=== PATIENT | female | born 1970 | race Caucasian/White ===

== ENCOUNTER → 2023-11-23 11:09 | Outpatient (REF) | payer OTHER, SELFPAY | LOC: WDC 11:09 | PROVIDERS: ATTENDING PHYSICIAN Physician Assistant Medical | DX: Z12.31 Encounter for screening mammogram for malignant neoplasm of breast (principal) | CPT/HCPCS: 77063; 77067 ==

== ENCOUNTER 2024-06-01 20:01 | Inpatient (IN) | payer OTHER, SELFPAY ==
[2024-06-01] VITALS (8 sets, daily range): BP systolic 109–145; BP diastolic 61–99; BMI 37.5
[2024-06-01 12:08] LABS: % Basophils 0.2 % (0-2); % Eosinophils 0.2 % (0-6); % Immature Granulocytes 0.5 % (0-0.5); % Lymphocytes 5.1 % (20.5-51.1); % Monocytes 5.5 % (1.7-9.3); % Neutrophils 88.5 % (42.2-75.2); Absolute Immature Granulocytes 0.1 10^3/uL (0-0.05); Absolute Lymphocytes 0.9 10^3/uL (1.2-3.4); Absolute Monocytes 0.9 10^3/uL (0.1-0.6); Absolute Neutrophils 14.8 10^3/uL (1.4-6.5); Hematocrit 36.1 % (37.0-47.0); Hemoglobin 12.4 g/dL (12.0-16.0); Mean Corp Hgb Conc. 34.3 g/dL (33.0-37.0); Mean Corpuscular Hgb 33.4 pg (27.0-31.0); Mean Corpuscular Volume 97.3 fL (81.0-99.0); Mean Platelet Volume 9.3 fL (7.4-10.4); Nucleated Red Blood Cells % 0 %; Platelet Count 306 10^3/uL (130-400); Red Blood Cell Count 3.71 10^6/uL (4.20-5.40); Red Cell Dist. Width 13.2 % (11.5-14.5); White Blood Cell Count 16.7 10^3/uL (4.8-10.8)
[2024-06-01 12:17] LABS: HCG, Serum Qualitative Screen Negative
[2024-06-01 12:34] LABS: ALT (SGPT) 21 U/L (0-35); AST (SGOT) 23 U/L (14-36); Albumin 4.3 g/dl (3.5-5.0); Alkaline Phosphatase 54 U/L (38-126); Blood Urea Nitrogen 8 mg/dl (7-17); Calcium 9.8 mg/dl (8.4-10.2); Carbon Dioxide 26 mmol/L (22-30); Chloride 97 mmol/L (98-107); Glucose 139 mg/dl (70-99); Lipase 52 U/L (23-300); Potassium 3.7 mmol/L (3.5-5.1); Sodium 133 mmol/L (135-145); Total Protein 7.5 g/dl (6.3-8.2); eGFR > 60.00
[2024-06-01] MEDS: DILAUDID 0.5 MG IV ×2 (13:57→16:03)
--- NOTE | 2024-06-01 14:09 | ED.GENMED ---
History of Present Illness
General
Chief Complaint: Abdominal Pain
Source: patient
Exam Limitations: none
Time Seen by Provider: 06/01/24 13:37
Nursing documentation reviewed up to this point in time: agreed with
History of Present Illness
History of Present Illness:
Patient presents to ED secondary to worsening lower abdominal pain over the past 3 days. Abdominal pain described as sharp, nonradiating, without any alleviating or exacerbating factors. Denies fever or chills. Denies trauma. Denies back pain.
Denies difficulty with urination. Denies previous history of similar symptoms. Of note, patient was treated with antibiotics and steroids 3 weeks ago secondary to bronchitis.
Past History
Past History
ED Past Medical History: Valvular disease (Heart murmur as a child) and Psychiatric (Anxiety)
ED Past Surgical History: Other (Repair of a fractured ankle)
Social History
Tobacco: Smoker
Alcohol: None
Drug: None
Personal:
Living: with family
Employment: Employed
Review of Systems
Review of Systems
Allergies reviewed?: Yes
All Other Systems: ROS reviewed and negative except as documented in HPI and ROS
Constitutional: Reports no symptoms; Denies fever or chills
ABD/GI: Reports abdominal pain, nausea and vomiting; Denies diarrhea
: Reports no symptoms
Musculoskeletal: Reports no symptoms
Skin: Reports no symptoms
Neurological: Reports no symptoms
Phy Exam
Physical Exam
Physical Exam:
Physical Exam
General: mild distress, not acutely ill. afebrile.
Head: nc/at. eomi
Neck: supple. no meningeal signs.
Heart: s1/s2 regular rate and rhythm, no murmur. equal radial pulses.
Lungs: no acute respiratory distress. clear bilaterally
Abdomen: normal bowel sounds. not tender.
Neuro: alert and oriented. no focal neurological deficits
Skin: no rash
Psychiatric: well kept. interactive and cooperative
Extremities: no edema. no calf tenderness.
Course
Orders/Labs/Results
Orders:
Orders
06/01/24 11:53
Test Result ONCE
06/01/24 11:56
Complete Blood Count/With Diff Urgent
Comprehensive Metabolic Panel Urgent
HCG, Serum Qualitative Screen Urgent
Lipase Urgent
06/01/24 13:46
CT Abd/pelvis W Iv Cont Urgent
Comment:
Reason For Exam: RLQ pain
HYDROmorphone [Dilaudid] 0.5 mg IV NOW STA
06/01/24 Dinner
Clear Liquid
At Your Request: Full Participation
06/01/24 15:54
Piperacillin/Tazo 3.375 Gram [Zosyn] 3.375 gram in 50 ml IV NOW
06/01/24 15:55
HYDROmorphone [Dilaudid] 0.5 mg IV NOW STA
06/01/24 16:35
Admit Patient As Directed
Co-Sign Provider:
Level of Care: Observation services
Assign to:: Medical/Surgical
Physician / Group: General surgery/[facility]
Diagnosis: acute appendicitis
Code Status As Directed
Resuscitation Status: Full Code
Acetaminophen [Tylenol] 650 mg PO Q4HPRN PRN
HYDROmorphone [Dilaudid] 0.5 mg IV Q4HPRN PRN
Ketorolac [Toradol] 10 mg IV Q6HPRN PRN
Activity As Directed
Activity Level: Out of Bed-Early Mobility
Anti-embolism (MICHAEL) Hose As Directed
Type: Thigh high
Intake/ Output As Directed
Frequency: Per unit guidelines
Vital Signs As Directed
Frequency: Per unit guidelines
06/01/24 16:36
Pneumatic Compression Sleeves As Directed
Type: Knee high
PRN Pain Medication Management As Directed
May give lesser potent ordered pain med per pt: Yes
preference::
Protocol:: Medication orders for pain may be administered in a
manner that supports deferring to patient preference
when the pt is:
- Requesting an ordered lesser potent pain medication.
Least to most potent pain medications are defined
as: acetaminophen < NSAID < tramadol < opioids
(morphine, oxycodone, hydromorphone).
- Requesting a lesser dose of the same medication IF
ORDERED.
- Requesting a less intrusive route of administration
if both routes are prescribed by the provider (PO <
IV).
DX Deep Vein Thrombosis Video Routine
06/01/24 16:37
O2 Therapy [RESP] Routine
Titrate/Wean O2 to maintain O2 sat greater than (%): 92
Rx Incentive Spirometry [RESP] Routine
Frequency: q1h while awake
# of times per hour: 10
06/01/24 16:39
Alprazolam [Xanax] 0.5 mg PO DAILYPRN PRN
Prochlorperazine [Compazine] 10 mg IV Q6HPRN PRN
06/01/24 21:00
Piperacillin/Tazo 3.375 Gram [Zosyn] 3.375 gram in 50 ml IV Q6H
06/02/24 Breakfast
NPO
Allow oral meds: Yes
Allow clear liquids: No
06/02/24 08:00
Citalopram [Celexa] 40 mg PO DAILY
Metoprolol Xl [Toprol Xl] 25 mg PO DAILY
Abnormal Lab Results
06/01/24
11:56
WBC 16.7 H 10^3/uL
(4.8-10.8)
RBC 3.71 L 10^6/uL
(4.20-5.40)
Hct 36.1 L %
(37.0-47.0)
MCH 33.4 H pg
(27.0-31.0)
Abs Immat Gran (auto) 0.1 H 10^3/uL
(0-0.05)
Absolute Neuts (auto) 14.8 H 10^3/uL
(1.4-6.5)
Absolute Lymphs (auto) 0.9 L 10^3/uL
(1.2-3.4)
Absolute Monos (auto) 0.9 H 10^3/uL
(0.1-0.6)
Neutrophils % 88.5 H %
(42.2-75.2)
Lymphocytes % 5.1 L %
(20.5-51.1)
Sodium 133 L mmol/L
(135-145)
Chloride 97 L mmol/L
(98-107)
Glucose 139 H mg/dl
(70-99)
06/01/24 11:56
06/01/24 11:56
Vital Signs
Initial and Last Documented VS:
Initial Vital Signs
Temp Pulse Resp BP Pulse Ox
99.7 F 88 18 145/90 99
06/01/24 11:50 06/01/24 11:50 06/01/24 11:50 06/01/24 11:50 06/01/24 11:50
Last Documented Vital Signs
Temp Pulse Resp BP Pulse Ox
98.8 F 76 20 133/83 99
06/01/24 16:00 06/01/24 17:30 06/01/24 18:00 06/01/24 17:00 06/01/24 17:00
MDM/Problems Addressed
MDM/Problems Addressed:
CT report reviewed and discussed with patient.
Notified , on-call surgery, via [facility] text.
Discussed with - pt will be admitted to surgery service
*Critical Care Note
Total Time (30-74mins, 75-104mins- exclusive of procedures): Not Applicable
ED Attending Note
-
Portions of this chart may have been created with voice recognition software.� Occasional wrong word or��sound alike� substitutions may have occurred due to the inherent limitations of voice recognition software.
Discharge Plan
Departure
Patient Disposition: Admit
Date of Disposition: 06/01/24
Time of Disposition: 15:56
Presentation/result/management discussed w/ accepting MD/DO:
Discharge Problem:
Acute appendicitis
Prescriptions:
No Action
citalopram 40 mg Tablet
40 mg PO DAILY
acetaminophen [Tylenol Extra Strength] 500 mg Tablet
1,000 mg PO Q6HPRN PRN (Reason: mild pain)
alprazolam 0.5 mg Tablet
0.5 mg PO DAILYPRN PRN (Reason: anxiety)
Patient Comments:
06/01/24: last filled 05/07/24 for 30 tablets over 30 days
valsartan 320 mg Tablet
320 mg PO DAILY
metoprolol succinate 25 mg Tablet Extended Release 24 Hr
25 mg PO DAILY
diphenhydramine-acetaminophen [Tylenol PM Extra Strength] 25-500 mg Tablet
1 tab PO HSPRN PRN (Reason: mild pain)
Referrals:
Dinora Alarcon PA [Family Provider] -
Interventions
Interventions:
*Risk Screen - Suicide Last Done: 06/01/24 11:50
*General Assessment Last Done: 06/01/24 11:50
*Neglect/Abuse Screening Last Done: 06/01/24 11:50
ED- Fall Risk Assessment Last Done: 06/01/24 13:26
DD-Mbbovd-Xanevnopue Assessment Last Done: 06/01/24 13:26
Discharge Date and Time
Print Language: SPANISH
[2024-06-01] MEDS: ZOSYN 50 IV ×2 (16:03→21:59)
--- NOTE | 2024-06-01 16:40 | HPS.HSE ---
Addendum entered and electronically signed by Javi Grant MD 06/02/24 10:41:
I saw and examined the patient.
The [facility] Registered Nurse Rn's note was reviewed and I agree with the note.
Comment: Pain continues, localized to RLQ. ttp in the area as well. Tmax 99.7F, WBC 16K. CT c/w acute appendicitis. Plan for IV abx, OCTOR for lap appy.
Original Note:
Family Physician
-
Family Physician: Dinora Alarcon
Chief Complaint
-
abdominal pain
History of Present Illness
Ms Scott is a 53 yo female with a history of HTN, ORIF if the right ankle and light tobacco use who presents through the ED with RLQ pain for the past 3 days. She notes associated nausea with vomiting, poor appetite and diarrhea as well. She
denies fevers or chills. She notes that she was recently treated for bronchitis with a course of oral steroids and a z-pack which she completed yesterday. She had improvement in respiratory symptoms and no longer complains of cough or SOB. She
initially attributed her GI symptoms to the medications she was taking but symptoms persisted and worsened even after completion causing her to present to the ED. On exam, there is RLQ tenderness which is focally severe and positive Rovsing's sign.
She is comfortable after receiving analgesics in the ED but does complain of thirst.
Medical History
Past Medical History
Past Medical History: Reports HTN and Psychiatric (anxiety/depression)
Past Surgical History: Reports Orthopedic (ORIF Right ankle)
Social History
Tobacco: Smoker (1-2 cigarettes a day)
Personal:
Living: With Family
Family History
Family History: Not pertinent
Allergies / Home Medications
Allergies reflects when Allergies were last updated in [employer].
Home Medications with original date entered in [employer]
Allergy/Medication List:
Patient Allergies
Allergy/AdvReac Type Severity Reaction Status Date / Time
No Known Allergies Allergy Verified 06/01/24 11:50
�Medication �Instructions �Recorded �Confirmed �Type
acetaminophen 500 mg tablet 1,000 mg PO Q6HPRN PRN mild pain 06/01/24 06/01/24 History
(Tylenol Extra Strength)
alprazolam 0.5 mg tablet 0.5 mg PO DAILYPRN PRN anxiety 06/01/24 06/01/24 History
citalopram 40 mg tablet 40 mg PO DAILY 06/01/24 06/01/24 History
diphenhydramine 25 1 tab PO HSPRN PRN mild pain 06/01/24 06/01/24 History
mg-acetaminophen 500 mg tablet
(Tylenol PM Extra Strength)
metoprolol succinate 25 mg 25 mg PO DAILY 06/01/24 06/01/24 History
tablet,extended release 24 hr
valsartan 320 mg tablet 320 mg PO DAILY 06/01/24 06/01/24 History
Review of Systems
-
History Source: Patient and Family
A 12 point ROS was completed and negative except as noted: Yes
Physical Exam
Vital Signs
Vital Signs
Temp Pulse Resp BP Pulse Ox
98.8 F 76 12 116/72 93
06/01/24 16:00 06/01/24 16:09 06/01/24 16:09 06/01/24 16:08 06/01/24 16:09
Physical Exam
General: No Apparent Distress
HEENT: Anicteric and Moist mucous membranes
Respiratory: Non Labored Respirations
GI: Soft and Tender (RLQ, +Rovsing's sign)
Skin: Warm and Dry
Neuro: Awake, Alert and AO x 3
Psych: Calm
Laboratory Results
-
06/01/24 11:56
06/01/24 11:56
Laboratory Results
Total Bilirubin 1.0 mg/dl (0.2-1.3) 06/01/24 11:56
AST 23 U/L (14-36) 06/01/24 11:56
ALT 21 U/L (0-35) 06/01/24 11:56
Alkaline Phosphatase 54 U/L (38-126) 06/01/24 11:56
Lipase 52 U/L (23-300) 06/01/24 11:56
Data Reviewed
-
CT Scan: Image Personally Visualized and interpreted, Report Reviewed by me, Discussed with Physician, Discussed with Patient and Discussed with Family
Lab Data: Labs Reviewed by me, Discussed with Physician, Discussed with Patient and Discussed with Family
Old Records: Reviewed
Impression/Plan
-
IMPRESSION: 53 yo female who recently completed z-pack and oral steroids for bronchitis who is presenting with RLQ pain x3 days with associated n/v/d. CT imaging and exam consistent with acute appendicitis. No abscess present on imaging. She is
afebrile with stable vital signs. Leukocytosis present.
PLAN:
Admit for management
Ok for clear liquids tonight
NPO after MN for tentative OR for laparoscopic appendectomy
Analgesics/antiemetics as needed
Declines need for nicotine patch
C/W celexa, xanax, toprol. Will hold valsartan for now in setting of acute infection
C/W IV Zosyn
SCDs for VTE ppx
[2024-06-01] MEDS: TORADOL 10 MG IV (21:03)
[2024-06-02] VITALS (10 sets, daily range): BP systolic 107–140; BP diastolic 61–79
[2024-06-02] MEDS: DILAUDID 0.5 MG IV ×4 (01:22→17:19)
[2024-06-02] MEDS: ZOSYN 50 IV ×4 (04:16→23:11)
[2024-06-02] MEDS: TORADOL 10 MG IV ×2 (08:00→23:16)
[2024-06-02] MEDS: TOPROL XL 25 MG PO (08:06)
--- NOTE | 2024-06-02 11:36 | OR.RPT ---
Operative Report
Operative Report
Primary Surgeon: Rudy
Pre-op Diagnosis: Acute appendicitis
Post-op Diagnosis: Same
Procedure Performed: Laparoscopic appendectomy
Anesthesia Type: GETA
Specimen / Cultures: Appendix
Estimated Blood Loss: 20cc
Complications: None immediate
Operative Findings: Severely inflamed appendix densely adherent to lateral pelvic sidewall with a small abscess with pus and a small area of necrosis of the peritoneum of the lateral pelvic sidewall
Date of Surgery: 06/02/24
Indications: This 53F developed right lower quadrant abdominal pain and on workup was found to have acute appendicitis. Laparoscopic appendectomy was elected.
Description of procedure: The patient was placed on the operating table in the supine position. General anesthesia was induced. A time-out was completed verifying correct patient, procedure, site, positioning, and special equipment prior to
beginning this procedure. An orogastric tube was placed. The abdomen was prepped and draped in the usual sterile fashion. A stab incision was made in left upper quadrant and the Veress needle was inserted. Proper position was confirmed by aspiration
and saline meniscus test. The abdomen was insufflated with carbon dioxide to a pressure of 12 mmHg. The patient tolerated insufflation well.
A 5mm optical trocar was then inserted at the left lower quadrant. The laparoscope was inserted and the abdomen inspected. No injuries from initial trocar placement or Veress needle insertion were noted. Additional trocars were then inserted in the
following locations: a 12-mm trocar at the umbilicus and a 5-mm trocar midline in the suprapubic space. The abdomen was inspected and no abnormalities were found. The table was placed in the Trendelenburg position with the right side up. The cecum
was densely adherent to the lateral abdominal wall and there was an inflammatory mass at the base of the cecum. This whole complex was gently bluntly peeled down from the abdominal wall and peritoneum came down as well. Purulence and a small area of
necrotic tissue was noted. The base of the appendix was identified and a window was created between the appendix and its mesentery. Following this, a laparoscopic linear cutting stapler with a 45mm shelby load was deployed and used to transect the
appendix at its base. The inflammatory mass incorporating the appendix was grasped and elevated and the blood supply was controlled with the voyant device. The appendix was placed in an endoscopic retrieval bag, removed through the umbilical port,
and passed off the table as a specimen.
We then turned our attention to the staple line, which was noted to be hemostatic. The abd was thoroughly irrigated with sterile saline. The umbilical trocar site was closed at the fascial level laparoscopically with 2-0 PDS under direct vision.
Secondary trocars were removed under direct vision and noted to be hemostatic. The laparoscope was withdrawn and the abdomen was allowed to collapse. The skin was closed with subcuticular sutures of 4-0 monocryl and topical skin adhesive. The
orogastric tube was removed.
The patient tolerated the procedure well and was taken to the postanesthesia care unit in stable condition.
[2024-06-02] MEDS: ZOFRAN 4 MG IV (11:42)
[2024-06-02] MEDS: CELEXA PO (11:52)
[2024-06-02] MEDS: COMPAZINE 5 MG IV (12:06)
--- NOTE | 2024-06-02 13:50 | CM ---
Initial assessment completed with pt at bedside.
Pt was admitted on OBS for appendicitis. SW reviewed Obs letter at bedside.
Pt is going out for surgery this morning.
Pt is indep at baseline and lives with her in a 1 level home and 0ste.
Pt has no equipment and no hx of VN/SNF.
PCP; Dinora Alarcon
Pharm; [facility] [address] [place]
PLAN; DC with no anticipated needs identified.
--- NOTE | 2024-06-02 14:23 | PTCARENOTE ---
Pt returned from OR, dilaudid provided, sleeping, no noted nausea. Pt call garcia is within reach, pt rings alex. will cont to monitor.
[2024-06-02] MEDS: ROXICODONE 10 MG PO (20:16)
[2024-06-03 03:50] VITALS: BP 118/73
[2024-06-03] MEDS: ZOSYN 50 IV ×2 (04:43→10:54)
[2024-06-03 05:53] LABS: Hematocrit 32.5 % (37.0-47.0); Mean Corp Hgb Conc. 33.8 g/dL (33.0-37.0); Mean Corpuscular Hgb 33.2 pg (27.0-31.0); Mean Corpuscular Volume 98.2 fL (81.0-99.0); Mean Platelet Volume 9.8 fL (7.4-10.4); Platelet Count 311 10^3/uL (130-400); Red Blood Cell Count 3.31 10^6/uL (4.20-5.40); Red Cell Dist. Width 12.9 % (11.5-14.5); White Blood Cell Count 13.7 10^3/uL (4.8-10.8)
[2024-06-03 08:12] VITALS: BP 106/63
[2024-06-03] MEDS: TOPROL XL 25 MG PO (08:14)
[2024-06-03] MEDS: CELEXA 40 MG PO (08:14)
--- NOTE | 2024-06-03 11:30 | PTCARENOTE ---
Assumed care of pt from previous nurse. Pt denies pain. Reports feeling much better than yesterday. Pt abdomen lap sites intact with surgi glue. Positive bowel sounds. Pt call garcia is within reach, pt rings alex. will cont to monitor
--- NOTE | 2024-06-03 11:41 | W.PN.GS2 ---
Addendum entered and electronically signed by Javi Grant MD 06/03/24 12:46:
I saw and examined the patient.
The Mobile Home Technician's note was reviewed and I agree with the note.
Comment: Doing well post-op. Amulating, pain controlled, niru diet. AFVSS. Exam approp. K for DC home, would send with 7 days augmentin.
Original Note:
Today's Communication / Plan
-
dispo planning
Assessment / Plan
-
53 yo female who presented with acute appendicitis now POD #1 lap appi. Severely inflamed appendix densely adherent to lateral pelvic sidewall with a small abscess with pus and a small area of necrosis of the peritoneum of the lateral pelvic
sidewall noted intraop
AFVSS
Leukoctysois improving
Tolerating diet with passage of flatus
--Continue regular diet
--Analgesics prn
--C/W ABX upon discharge
--Discharge to home
Subjective Data
-
Date of Service: June 03, 2024
Patient seen and examined at bedside with Dr. Grant. Denies n/v. Tolerating diet. OOB ambulating. Pain prior to surgery relieved. Some incisional soreness
Objective Data
-
Intake and Output
06/02/24 06/03/24 06/04/24
06:59 06:59 06:59
Intake Total 960 / 960
Balance 960 / 960
Intake:
Oral fluids 960 / 960
Other:
Number of approximated MODERATE 2
amounts of urine
Vital Signs
Temp Pulse Resp BP Pulse Ox
97.9 F 61 17 106/63 97
06/03/24 08:12 06/03/24 08:14 06/03/24 08:12 06/03/24 08:14 06/03/24 08:12
Lab Results
06/03/24 05:18
06/01/24 11:56
Calcium 9.8 mg/dl (8.4-10.2) 06/01/24 11:56
Total Bilirubin 1.0 mg/dl (0.2-1.3) 06/01/24 11:56
AST 23 U/L (14-36) 06/01/24 11:56
ALT 21 U/L (0-35) 06/01/24 11:56
Alkaline Phosphatase 54 U/L (38-126) 06/01/24 11:56
Total Protein 7.5 g/dl (6.3-8.2) 06/01/24 11:56
Albumin 4.3 g/dl (3.5-5.0) 06/01/24 11:56
Physical Exam
-
NAD
ABD soft, nt, nd
Incisions well approximated with intact glue, some ecchymosis
[2024-06-03 11:47] VITALS: BP 111/72
--- NOTE | 2024-06-03 11:56 | W.DS.TRANS ---
Addendum entered and electronically signed by CANDIDA Beltrán 06/03/24 16:36:
#[id number]
Original Note:
DC Summary - [facility]
-
Discharge Instructions:
Discharge Diagnosis/Procedures Acute appendicitis status post laparoscopic
appendectomy
Diet As tolerated,Regular
Activity No strenuous activity
Additional Activity Do not lift over 15lbs for the next 2-3 weeks
Driving Restrictions No driving for 24 hours
Wound Care The glue over your incisions will flake off in
the next 2-3 weeks on its own. Wash incisions
gently with soap and water in the shower. Do not
soak in a tub or swim until after 7 days. Call
your surgeon if you have worsening abdominal
pain, nausea with vomiting, redness to your
incisions or a temperature >101.
Instructions:
Stand-Alone Forms:
Changes to Home Medications: No
Discharge Medications:
DC Medications w/original date entered in [facility]
acetaminophen 500 mg tablet (Tylenol Extra Strength) 1,000 mg PO Q6HPRN PRN mild pain 06/01/24
alprazolam 0.5 mg tablet 0.5 mg PO DAILYPRN PRN anxiety 06/01/24
citalopram 40 mg tablet 40 mg PO DAILY Mental Health/Anxiety 06/01/24
diphenhydramine 25 mg-acetaminophen 500 mg tablet (Tylenol PM Extra Strength) 1 tab PO HSPRN PRN mild pain 06/01/24
metoprolol succinate 25 mg tablet,extended release 24 hr 25 mg PO DAILY Blood Pressure 06/01/24
valsartan 320 mg tablet 320 mg PO DAILY Blood Pressure 06/01/24
acetaminophen 325 mg tablet 650 mg (2 x 325 mg) PO Q4HPRN PRN mild pain #1 tab 06/03/24
amoxicillin 875 mg-potassium clavulanate 125 mg tablet 1 tab PO Q12 antibiotic #14 tabs 06/03/24
oxycodone 5 mg tablet 5 mg PO Q4HPRN PRN breakthrough/severe pain #5 tabs 06/03/24
Home Medication Changes
Pending Results: No
--- NOTE | 2024-06-03 13:50 | PTCARENOTE ---
Pt dc'd to home, transported to waiting in car via w/c. IV removed and dc paperwork reviewed with copy provided
== END 2024-06-03 14:25 | disposition home or self-care (01) | DRG 399 ==
LOC: 4 WEST ACU 20:01
PROVIDERS: Emergency Medicine; ADMITTING PHYSICIAN Surgery; EMERGENCY PHYSICIAN Emergency Medicine; FAMILY PHYSICIAN Physician Assistant Medical
PROC: 0DTJ4ZZ Resection of Appendix, Percutaneous Endoscopic Approach (ICD-10-PCS; 2024-06-02)
DX: K35.33 Acute appendicitis with perforation, localized peritonitis, and gangrene, with abscess (principal); F41.9 Anxiety disorder, unspecified; F17.210 Nicotine dependence, cigarettes, uncomplicated; I10 Essential (primary) hypertension; F32.A Depression, unspecified
CPT/HCPCS: 88304; 74177; 80053; 83690; 84703; 85025; 85027; 96365; 96375; 96376; 99285; C1776; G0378; Q9967

== ENCOUNTER 2024-08-14 02:41 | Inpatient (IN) | payer OTHER, SELFPAY ==
[2024-08-13 20:44] VITALS: BP 102/66
[2024-08-13 21:02] LABS: % Basophils 0.3 % (0-2); % Eosinophils 0.7 % (0-6); % Immature Granulocytes 0.3 % (0-0.5); % Monocytes 7.3 % (1.7-9.3); % Neutrophils 73.4 % (42.2-75.2); Absolute Basophils 0.1 10^3/uL (0-0.2); Absolute Eosinophils 0.1 10^3/uL (0-0.7); Absolute Immature Granulocytes 0.1 10^3/uL (0-0.05); Absolute Lymphocytes 2.7 10^3/uL (1.2-3.4); Absolute Monocytes 1.1 10^3/uL (0.1-0.6); Absolute Neutrophils 10.9 10^3/uL (1.4-6.5); Hematocrit 34.6 % (37.0-47.0); Hemoglobin 11.6 g/dL (12.0-16.0); Mean Corp Hgb Conc. 33.5 g/dL (33.0-37.0); Mean Corpuscular Hgb 32.7 pg (27.0-31.0); Mean Corpuscular Volume 97.5 fL (81.0-99.0); Mean Platelet Volume 8.9 fL (7.4-10.4); Nucleated Red Blood Cells % 0 %; Platelet Count 355 10^3/uL (130-400); Red Blood Cell Count 3.55 10^6/uL (4.20-5.40); Red Cell Dist. Width 13.6 % (11.5-14.5); White Blood Cell Count 14.9 10^3/uL (4.8-10.8)
[2024-08-13 21:10] LABS: Lactic Acid 1.4 mmol/L (0.7-2.0)
[2024-08-13 21:17] LABS: ALT (SGPT) 38 U/L (0-35); AST (SGOT) 56 U/L (14-36); Albumin 4.3 g/dl (3.5-5.0); Alkaline Phosphatase 77 U/L (38-126); Blood Urea Nitrogen 11 mg/dl (7-17); Calcium 9.6 mg/dl (8.4-10.2); Carbon Dioxide 22 mmol/L (22-30); Chloride 99 mmol/L (98-107); Glucose 104 mg/dl (70-99); Lipase 50 U/L (23-300); Potassium 3.9 mmol/L (3.5-5.1); Sodium 134 mmol/L (135-145); Total Bilirubin 0.3 mg/dl (0.2-1.3); Total Protein 7.6 g/dl (6.3-8.2); eGFR > 60.00
[2024-08-14] VITALS (21 sets, daily range): BP systolic 71–161; BP diastolic 45–94; PULSE 68–71; BMI 37.0; BMI 36.5
--- NOTE | 2024-08-14 00:07 | ED.GENMED ---
History of Present Illness
General
Chief Complaint: Abdominal Pain
Source: patient
Exam Limitations: none
Time Seen by Provider: 08/13/24 23:31
History of Present Illness
History of Present Illness:
This is a 54 year old female that comes in with c/o right sided abd pain. States that she has her appendix out 2 months ago and now she has pain in the right abd that feels like when she needed her appendix removed. States that this started 3-4 days
ago. State that the pain is getting worse. State that she is nauseated, vomited and had diarrhea. Denies any fever, chills, chest pain, SOB, headache, dizziness, urinary burning.
Past History
Past History
ED Past Medical History: Valvular disease (Heart murmur as a child) and Psychiatric (Anxiety)
ED Past Surgical History: Appendectomy and Orthopedic (Right ankle surgery)
Social History
Tobacco: Smoker
Alcohol: Daily (Vodka 3-4 glasses)
Drug: None
Personal:
Living: with family
Employment: Employed
Review of Systems
Review of Systems
All Other Systems: ROS reviewed and negative except as documented in HPI and ROS
Constitutional: Reports no symptoms; Denies fever or chills
EENT: Reports no symptoms
Respiratory: Reports no symptoms; Denies cough or trouble breathing
Cardiac: Reports no symptoms; Denies chest pain
ABD/GI: Reports abdominal pain, nausea, vomiting and diarrhea
: Reports no symptoms; Denies dysuria, frequency or urgency
Musculoskeletal: Reports no symptoms
Skin: Reports no symptoms
Neurological: Reports no symptoms; Denies dizzy or headache
Psychiatric: Reports no symptoms
Phy Exam
General Physical Exam
General Presentation: no apparent distress
General age: appears stated age
General Skin: warm and dry
General Habitus: obese
General Mental: alert
General Hydration: appears well hydrated
ENT Exam
ENT Exam: TM's normal, pharynx normal and neck supple
Eye Exam
Eye Exam: EOMI
Cardiovascular Exam
Cardiovascular Exam: regular rate/rhythm, no edema, no murmur and normal peripheral pulses
Pulmonary Exam
Pulmonary Exam: lungs clear, no respiratory distress, no rales, chest non tender, no crackles, no rhonchi, no wheezing and no cough
Gastrointestinal Exam
Gastrointestinal Exam: normal bowel sounds, non tender, soft, no organomegaly, no pulsatile mass and non distended
Musculoskeletal Exam
Musculoskeletal Exam: full ROM and no edema
Skin Exam
Skin Exam: normal color, warm/dry, no rash and no petechia
Psychiatric Exam
Psychiatric Exam: normal mood/affect
Course
Orders/Labs/Results
Orders:
Orders
08/13/24 20:52
Complete Blood Count/With Diff Urgent
Comprehensive Metabolic Panel Urgent
Lactic Acid Urgent
Lipase Urgent
08/14/24 00:00
CT Abd/pelvis W Iv Cont Urgent
Comment: appendectomy 2 months ago
Reason For Exam: Right sided abd pain
0.9% Sodium Chloride 500 ml [Nss] 500 ml IV BOLUS
Ketorolac [Toradol] 30 mg IV NOW STA
08/14/24 00:21
Urinalysis Reflex To Culture Urgent
Date Specimen was Collected: 08/14/24
Time Specimen was Collected: 00:11
Urine Microscopic Reflex Cult Urgent
Urine Culture Urgent
SOLANGE Source: U
Specimen Description:
Date Specimen was Collected: 08/14/24
Time Specimen was Collected: 00:11
Abnormal Lab Results
08/13/24 08/14/24
20:52 00:21
WBC 14.9 H 10^3/uL
(4.8-10.8)
RBC 3.55 L 10^6/uL
(4.20-5.40)
Hgb 11.6 L g/dL
(12.0-16.0)
Hct 34.6 L %
(37.0-47.0)
MCH 32.7 H pg
(27.0-31.0)
Abs Immat Gran (auto) 0.1 H 10^3/uL
(0-0.05)
Absolute Neuts (auto) 10.9 H 10^3/uL
(1.4-6.5)
Absolute Monos (auto) 1.1 H 10^3/uL
(0.1-0.6)
Lymphocytes % 18.0 L %
(20.5-51.1)
Sodium 134 L mmol/L
(135-145)
Glucose 104 H mg/dl
(70-99)
AST 56 H U/L
(14-36)
ALT 38 H U/L
(0-35)
Ur Occult Blood Reflex 1+ A
(Negative)
Urine Bacteria (Reflex) Moderate A
(Negative)
08/13/24 20:52
08/13/24 20:52
Leukocytosis, H/H slightly low. Sodium slightly low. Glucose nonfasting. AST/ALT slightly elevated. Lactic acid normal at 1.4, Lipase normal at 50, Urine negative for infection.
Vital Signs
Initial and Last Documented VS:
Initial Vital Signs
Pulse Resp BP Pulse Ox
73 20 102/66 98
08/13/24 20:44 08/13/24 20:44 08/13/24 20:44 08/13/24 20:44
Last Documented Vital Signs
Temp Pulse Resp BP Pulse Ox
98.1 F 72 12 89/61 100
08/13/24 20:50 08/14/24 01:00 08/14/24 01:00 08/14/24 01:00 08/14/24 01:00
MDM/Problems Addressed
Differential Diagnosis Includes:
Renal calculus. UTI, Abd abscess
MDM/Problems Addressed:
This is a 54 year old female that come sin with c/o right sided abd pain. States that she had her appendix out 2 months ago and about 3-4 days ago she started with right sided pain that feels like when she needed her appendix out. States that the
pain is getting worse.
Will check labs, give IV fluids and get CT scan.
Back into see patient. Explained that the CT shows that there is a developing abscess. Will start patient on Antibiotics and admit. Hospitalist notified.
Chronic conditions affecting care:
NA
Acute Exacerbation and/or Progression of Chronic Illness:
NA
*Radiology
Radiology exam reviewed: radiology read reviewed (CT- Fluid collection adjacent to the site of prior appendectomy measuring approximately 2.6 X 3.6X 5.1cm, of unknown sterility, but presence of surrounding stranding raises the suggestion of possible
developing abscess. No free air identified. No bowel Obstruction. Normal gallbladder. ) and all reviewed NAD by ED Provider (CT cont: Incidentals: Diverticulosis without evidence of diverticulitis. No obstructive uropathy. No hepatic or pancreatic
mass. No abdominal aortic aneurysm. No acute osseous abnormality. NO acute abnormality within the visualized lungs. No acute abnormality within the visualized soft tissues. )
*Pulse Oximetry
Patient hypoxic: no
*EKG
Interpreted by ED Provider?: NA
Rate: EKG- N/A
*Director Supply Interpretation
Rate: Director Supply- N/A
*Critical Care Note
Total Time (30-74mins, 75-104mins- exclusive of procedures): Not Applicable
ED Attending Note
-
Portions of this chart may have been created with voice recognition software.� Occasional wrong word or��sound alike� substitutions may have occurred due to the inherent limitations of voice recognition software.
Discharge Plan
Departure
Patient Disposition: Admit
Date of Disposition: 08/14/24
Time of Disposition: 01:43
Admit to: Med/Surg
Presentation/result/management discussed w/ accepting MD/DO: Hospitalist
Patient with high blood pressure during this ER visit?: No
Condition: Good
Covid-19: Not Applicable
Discharge Problem:
Abdominal abscess, Right sided abdominal pain
Prescriptions:
No Action
citalopram 40 mg Tablet
40 mg PO DAILY
acetaminophen [Tylenol Extra Strength] 500 mg Tablet
1,000 mg PO Q6HPRN PRN (Reason: mild pain)
alprazolam 0.5 mg Tablet
0.5 mg PO DAILYPRN PRN (Reason: anxiety)
Patient Comments:
06/01/24: last filled 05/07/24 for 30 tablets over 30 days
valsartan 320 mg Tablet
320 mg PO DAILY
metoprolol succinate 25 mg Tablet Extended Release 24 Hr
25 mg PO DAILY
diphenhydramine-acetaminophen [Tylenol PM Extra Strength] 25-500 mg Tablet
1 tab PO HSPRN PRN (Reason: mild pain)
acetaminophen [acetaminophen] 325 mg tablet
650 mg PO Q4HPRN PRN (Reason: mild pain) Qty: 1 0RF
amoxicillin-pot clavulanate 875-125 mg tablet
1 tab PO Q12 Qty: 14 0RF
oxycodone 5 mg tablet
5 mg PO Q4HPRN PRN (Reason: breakthrough/severe pain) Qty: 5 0RF
oxycodone 5 mg tablet
5 - 10 mg PO Q4HPRN PRN (Reason: moderate to severe pain) Qty: 20 0RF
Referrals:
Dinora Alarcon PA [Family Provider] -
Interventions
Interventions:
*Risk Screen - Suicide Last Done: 08/14/24 00:21
*General Assessment Last Done: 08/13/24 20:44
*ED COVID-19 Vaccine History Last Done: 08/14/24 00:20
LE-Zaeyel-Eedsimpynd Assessment Last Done: 08/14/24 00:33
Discharge Date and Time
Print Language: SENEGALESE
[2024-08-14] MEDS: NSS 500 IV ×2 (00:17→01:39)
[2024-08-14] MEDS: TORADOL 30 MG IV (00:18)
[2024-08-14 00:37] LABS: Urine Albumin Negative (Neg - Trace); Urine Bilirubin Negative (Negative); Urine Character Slightly Cloudy (Clear); Urine Color Yellow; Urine Glucose Negative (Negative); Urine Ketone Negative (Negative); Urine Leukocyte Negative (Negative); Urine Nitrite Negative (Negative); Urine Occult Blood 1+ (Negative); Urine Specific Gravity 1.005 (<1.030); Urine Urobilinogen Negative (Neg - 1+)
[2024-08-14 01:03] LABS: Urine Bacteria Moderate (Negative); Urine Red Blood Cell 0-2 /HPF (0-2); Urine Squamous Cell >30 /LPF (Few)
[2024-08-14] MEDS: ZOSYN 50 IV ×4 (01:44→20:15)
[2024-08-14] MEDS: NSS 1000 IV (02:23)
--- NOTE | 2024-08-14 02:23 | HPS.HSE ---
Family Physician
-
Family Physician: Dinora Alarcon
Chief Complaint
-
Abd Pain
History of Present Illness
Patient is a 54y F with PMH significant for hypertension, anxiety and recent appendectomy who presents to ED complaining of RLQ abdominal pain. Patient initially underwent lap appy on 06/02/24 here at . She recovered well and had no issues
until about 4 days ago when she developed recurrent RLQ pain. Patient states that her symptoms were similar to those she had with her acute appendicitis presentation. She notes N/V/D. No fevers or chills. No chest pain, dyspnea, etc.
Medical History
Past Medical History
Past Medical History: Reports Other
Additional Past Medical History:
Hypertension
Anxiety
Obesity
Iron Deficiency Anemia
Past Surgical History: Reports Other
Additional Past Surgical History:
Laparoscopic Appendectomy (06/02/24)
Right Ankle ORIF
Social History
Tobacco: Smoker (Current every day smoker.)
Alcohol: Daily (3-4 drinks every day.)
Drug: None
Family History
Family History: Not pertinent
Allergies / Home Medications
Allergies reflects when Allergies were last updated in [facility].
Home Medications with original date entered in [facility]
Allergy/Medication List:
Allergies
Allergy/AdvReac Type Severity Reaction Status Date / Time
No Known Allergies Allergy Verified 08/14/24 00:11
Home Medications
alprazolam 0.5 mg tablet 0.5 mg PO DAILYPRN PRN anxiety 06/01/24
citalopram 40 mg tablet 40 mg PO DAILY Mental Health/Anxiety 06/01/24
metoprolol succinate 25 mg tablet,extended release 24 hr 25 mg PO DAILY Blood Pressure 06/01/24
valsartan 320 mg tablet 320 mg PO DAILY Blood Pressure 06/01/24
Review of Systems
-
History Source: Patient
A 12 point ROS was completed and negative except as noted: Yes
Constitutional: Denies Fever or Chills
Respiratory: Denies Cough or Trouble Breathing
Cardiac: Denies Chest Pain or Palpitations
Abdomen/GI: Reports Abdominal Pain, Nausea, Vomiting and Diarrhea
: Denies Dysuria or Frequency
Musculoskeletal: Denies Joint Pain or Edema
Neurological: Denies Dizzy or Headache
Physical Exam
Vital Signs
Vital Signs
Temp Pulse Resp BP Pulse Ox
98.1 F 66 12 79/46 97
08/13/24 20:50 08/14/24 02:00 08/14/24 01:45 08/14/24 01:32 08/14/24 02:00
Physical Exam
General: Other (54y F in no acute distress)
HEENT: Moist mucous membranes and PERRLA
Respiratory: Clear; No Wheezes, Rales or Rhonchi
Cardiac: S1/S2 and Regular Rhythm; No Murmur
GI: Soft, Non Distended, Normal Bowel Sounds and Other (Mild RLQ tenderness without rebound / guarding.)
Musculoskeletal: No Clubbing, No Cyanosis and No Edema
Neuro: AO x 3
Laboratory Results
-
08/13/24 20:52
08/13/24 20:52
Laboratory Results
Lactic Acid 1.4 mmol/L (0.7-2.0) 08/13/24 20:52
Total Bilirubin 0.3 mg/dl (0.2-1.3) 08/13/24 20:52
AST 56 U/L (14-36) H 08/13/24 20:52
ALT 38 U/L (0-35) H 08/13/24 20:52
Alkaline Phosphatase 77 U/L (38-126) 08/13/24 20:52
Lipase 50 U/L (23-300) 08/13/24 20:52
Impression/Plan
-
A/P: Patient is a 54y F with PMH significant for hypertension and anxiety who presents to ED complaining of abdominal pain.
Intra-Abdominal Abscess
- Admit for further evaluation and treatment.
- CT shows RLQ abscess at site of prior appendectomy - possible abscess.
- IV abx, supportive care, pain control.
- Surgery evaluation.
- IR evaluation for aspiration / drain / fluid analysis and cultures.
- Follow for any new / worsening symptoms.
Hypotension
Benign Hypertension by history
- BP low in the ED 70-80s systolic.
- No other signs / symptoms of sepsis.
- Check UDS, TFTs, etc.
- Hold valsartan completely.
- Holding parameters for metoprolol.
- IVF bolus / support overnight and follow for improvement in BP.
Generalized Anxiety
Daily Alcohol Use
- Patient states that she drinks 3-4 alcoholic beverages daily on average.
- MSAS protocol and treat symptoms with BZDs as needed.
- Thiamine, MVI replacement, etc.
- Continue citalopram.
Obesity due to excess calories
- Affects all aspects of care.
- Encourage healthy diet and increased exercise with goal of weight loss.
DVT Prophylaxis: SCDs
Code Status: Full
[2024-08-14] MEDS: LR 1000 IV ×2 (05:58→18:20)
[2024-08-14 06:03] LABS: Amphetamines Negative (Negative); Barbiturates Negative (Negative); Benzodiazepines Positive (Negative); Buprenorphine Negative (Negative); Cocaine Negative (Negative); Marijuana Negative (Negative); Methadone Negative (Negative); Methamphetamines Negative (Negative); Opiates Negative (Negative); Phencyclidine Negative (Negative); Tricyclic Antidepressants Negative (Negative)
[2024-08-14 06:31] LABS: Fentanyl, Urine Negative (Negative)
[2024-08-14] MEDS: FOLVITE 1 MG PO (07:43)
[2024-08-14] MEDS: TOPROL XL 25 MG PO (07:43)
[2024-08-14] MEDS: THIAMINE INJECTION 200 MG IV ×2 (07:47→20:15)
[2024-08-14 08:01] LABS: Hematocrit 32.9 % (37.0-47.0); Hemoglobin 10.8 g/dL (12.0-16.0); Mean Corp Hgb Conc. 32.8 g/dL (33.0-37.0); Mean Corpuscular Hgb 32.6 pg (27.0-31.0); Mean Corpuscular Volume 99.4 fL (81.0-99.0); Mean Platelet Volume 9.3 fL (7.4-10.4); Platelet Count 295 10^3/uL (130-400); Red Blood Cell Count 3.31 10^6/uL (4.20-5.40); Red Cell Dist. Width 13.7 % (11.5-14.5); White Blood Cell Count 9.1 10^3/uL (4.8-10.8)
[2024-08-14 08:09] LABS: INR 0.93
[2024-08-14 08:10] LABS: APTT 34.7 Sec (23.4-35.0)
[2024-08-14] MEDS: OMNIPAQUE 50 ML PO (08:39)
[2024-08-14] MEDS: TORADOL 15 MG IV ×2 (08:40→20:49)
[2024-08-14 08:48] LABS: Blood Urea Nitrogen 12 mg/dl (7-17); Calcium 8.4 mg/dl (8.4-10.2); Carbon Dioxide 23 mmol/L (22-30); Chloride 103 mmol/L (98-107); Estimated Creatinine Clearance 99 ml/min; Glucose 90 mg/dl (70-99); Sodium 135 mmol/L (135-145); eGFR > 60.00
[2024-08-14 09:17] LABS: TSH Reflex To Free T4 1.22 uIU/ml (0.47-4.68)
--- NOTE | 2024-08-14 11:24 | W.PN.UPDATE ---
Update Note
Progress Note Update
Nonbillable addendum (H&P submitted 230 AM)
reports RLQ pain radiating to umbilical area, no n/v. no f/c. reports dry cough for a few days
in IR for tube placement for suspected abscess
Assessment:
Intra-Abdominal Abscess
Recent appendicitis s/p appendectomy 06/02/24
- GS and IR consulted
- IR to place drain today
- follow fluid cultures/GS
- empiric Zosyn, day 1
- follow WBC and fever trends
Dry cough
- check COVID, Flu
- add Mucinex for congestion
Hypotension
Benign Hypertension by history
- improved with IVF
- holding ARB
- continue metoprolol with parameters
Generalized Anxiety
Daily Alcohol Use
- Patient states that she drinks 3-4 alcoholic beverages daily on average.
- MSAS protocol and treat symptoms with BZDs as needed.
- Thiamine, MVI replacement, etc.
- Continue citalopram.
Obesity due to excess calories
- Affects all aspects of care.
- Encourage healthy diet and increased exercise with goal of weight loss.
DVT Prophylaxis: SCDs
Code Status: Full
--- NOTE | 2024-08-14 11:50 | W.PN.UPDATE ---
Update Note
Progress Note Update
CT guided abscess drain placed, yielding 8 cc of purulent fluid. Sent for C+S.
--- NOTE | 2024-08-14 12:27 | CM ---
Received consult for etoh/substance counseling. Attempted to meet with patient however she is in IR and RN stated that she will be in testing a lot throughout the day. CM will f/u when she returns to room.
Plan: Case management will continue to follow and assist with discharge planning. Will obtain information for assessment, discuss counseling/Bcares with patient.
[2024-08-14] MEDS: MUCINEX 1200 MG PO ×2 (12:41→20:15)
[2024-08-14] MEDS: CELEXA 40 MG PO (12:42)
--- NOTE | 2024-08-14 13:11 | CON.GS ---
Medical History
-
Chief Complaint: RLQ abdominal pain
History of Present Illness:
Patient is a 54 yo F with a PMH notable for obesity, anxiety, HTN, anemia, and recently s/p laparoscopic appendectomy on 06/02/2024. Ms. Scott presents with approximately 5 days of worsening RLQ pain. She states that her symptoms were similar
to her initial presentation of appendicitis. She describes sharp RLQ abdominal pain with associated nausea and vomiting. No fevers. No recent antibiotic treatments. No fluctuations from a GI standpoint.
She underwent IR guided drainage of a periappendiceal fluid collection with drainage of approximately 8 cc of purulent fluid. Currently she states that her symptoms are mildly improved but she is bothered by the drain. Cultures pending.
Past Medical History
Past Medical History: HTN, Psychiatric (Depression/anxiety) and Other (Obesity, anemia)
Past Surgical History: Appendectomy (Laparoscopic appendectomy by Dr. Grant on 06/02/2024) and Orthopedic (RIGHT ankle ORIF)
Social History
Tobacco: Smoker
Alcohol: Daily
Drug: None
Family History
Family History: Reviewed & Not Pertinent
Allergies / Home Medications
Allergy/AdvReac Type Severity Reaction Status Date / Time
No Known Allergies Allergy Verified 08/14/24 00:11
�Medication �Instructions �Recorded �Confirmed �Type
alprazolam 0.5 mg tablet 0.5 mg PO DAILYPRN PRN anxiety 06/01/24 08/14/24 History
citalopram 40 mg tablet 40 mg PO DAILY Mental 06/01/24 08/14/24 History
Health/Anxiety
metoprolol succinate 25 mg 25 mg PO DAILY Blood Pressure 06/01/24 08/14/24 History
tablet,extended release 24 hr
valsartan 320 mg tablet 320 mg PO DAILY Blood Pressure 06/01/24 08/14/24 History
Review of Systems
-
A 10 point review of systems was completed, and was negative except as per HPI.
Physical Exam
Vital Signs
Temp Pulse Resp BP Pulse Ox
98.4 F 87 19 161/91 97
08/14/24 12:31 08/14/24 12:31 08/14/24 12:31 08/14/24 12:31 08/14/24 12:31
08/13/24 08/14/24 08/15/24
06:59 06:59 06:59
Actual Weight 102.467 kg
Body Mass Index (BMI) 36.5
Lab Results
08/14/24 06:39
08/14/24 06:39
WBC 9.1 10^3/uL (4.8-10.8) 08/14/24 06:39
Hgb 10.8 g/dL (12.0-16.0) L 08/14/24 06:39
Hct 32.9 % (37.0-47.0) L 08/14/24 06:39
Plt Count 295 10^3/uL (130-400) 08/14/24 06:39
Abs Immat Gran (auto) 0.1 10^3/uL (0-0.05) H 08/13/24 20:52
Neutrophils % 73.4 % (42.2-75.2) 08/13/24 20:52
Physical Exam
General: Well Developed, Well Nourished and No Apparent Distress
HEENT: Normocephalic and Anicteric
Respiratory: Non Labored Respirations
Cardiac: Regular Rhythm
GI: Soft, Non Distended, Tender (RLQ), Obese and Other (Nonperitoneal, IR drain with purulent output)
Skin: Warm and Dry
Neuro: Nonfocal/Grossly Intact
Data Reviewed
-
CT Scan: Image Personally Visualized and interpreted and Report Reviewed by me
Labs: Labs Reviewed by me
Old Records: Reviewed
Assessment / Plan
-
Patient is a 54 yo F s/p laparoscopic appendectomy by Dr. Javi Grant on 06/02/2024 who presents with a periappendiceal abscess
Recommend medical management with IR drainage and antibiotics. No plans or indication for repeat surgical intervention at this time. Plan for full liquids, will monitor tolerance throughout the day and potentially advance tomorrow. Discharge
pending culture results and outpatient antibiotic plan. Will likely be discharged with IR drain in place and repeat outpatient imaging.
-- Fulls
-- Pain control: Tylenol, Toradol, Oxycodone
-- Abx: Zosyn, adjust based on culture results or plan for total of 10 to 14 days treatment
-- Will need outpatient follow-up with all of the lungs possible repeat imaging to confirm resolution of abscess
-- Discharge pending culture results and outpatient antibiotic plan
[2024-08-14] MEDS: DILAUDID 0.5 MG IV ×2 (13:34→18:39)
[2024-08-14 14:16] LABS: COVID-19 Antigen Negative (Negative)
[2024-08-15] VITALS (7 sets, daily range): BP systolic 100–162; BP diastolic 74–91; PULSE 58–70
[2024-08-15] MEDS: ZOSYN 50 IV ×4 (02:40→19:57)
[2024-08-15] MEDS: DILAUDID 0.5 MG IV ×2 (02:43→08:34)
[2024-08-15] MEDS: LR IV ×3 (04:19→11:34)
[2024-08-15 06:42] LABS: Hematocrit 29.6 % (37.0-47.0); Hemoglobin 9.9 g/dL (12.0-16.0); Mean Corp Hgb Conc. 33.4 g/dL (33.0-37.0); Mean Corpuscular Hgb 32.9 pg (27.0-31.0); Mean Corpuscular Volume 98.3 fL (81.0-99.0); Mean Platelet Volume 9.5 fL (7.4-10.4); Platelet Count 305 10^3/uL (130-400); Red Blood Cell Count 3.01 10^6/uL (4.20-5.40); Red Cell Dist. Width 13.4 % (11.5-14.5); White Blood Cell Count 8.1 10^3/uL (4.8-10.8)
[2024-08-15 07:13] LABS: ALT (SGPT) 29 U/L (0-35); AST (SGOT) 35 U/L (14-36); Albumin 3.1 g/dl (3.5-5.0); Alkaline Phosphatase 75 U/L (38-126); Blood Urea Nitrogen 9 mg/dl (7-17); Carbon Dioxide 23 mmol/L (22-30); Chloride 103 mmol/L (98-107); Estimated Creatinine Clearance 114 ml/min; Glucose 93 mg/dl (70-99); Potassium 4.3 mmol/L (3.5-5.1); Sodium 133 mmol/L (135-145); Total Bilirubin 0.6 mg/dl (0.2-1.3); Total Protein 6.1 g/dl (6.3-8.2); eGFR > 60.00
[2024-08-15] MEDS: TOPROL XL 25 MG PO (08:33)
[2024-08-15] MEDS: CELEXA 40 MG PO (08:33)
[2024-08-15] MEDS: MUCINEX 1200 MG PO ×2 (08:33→19:57)
[2024-08-15] MEDS: FOLVITE 1 MG PO (08:33)
--- NOTE | 2024-08-15 10:15 | W.PN.GS2 ---
Today's Communication / Plan
-
-- Regular diet
-- IR drain with daily flushing (orders in)
-- Abx: Zosyn, culture data pending
Assessment / Plan
-
Patient is a 54 yo F p/w deep space abscess at the site of her prior appendectomy back in May
AVSS
Leukocytosis resolved
Cultures pending
Continue with IR drainage and medical management.
-- Regular diet
-- IR drain with daily flushing (orders in)
-- Abx: Zosyn, culture data pending
-- Pain control: Tylenol and Toradol
Subjective Data
-
Date of Service: August 15, 2024
Reports discomfort from drain especially with mobility and movement. Denies any bloating, excessive belching, nausea, or vomiting. Ports passing flatus and nonbloody stools. No fevers.
Objective Data
-
Intake and Output
08/14/24 08/15/24 08/16/24
06:59 06:59 06:59
Intake Total 1350 / 1350
Output Total 150 / 150 / 30
Balance -150 / -150 1320 / 1320
Intake:
Oral fluids 1170 / 1170
IV piggybacks 150 / 150
Amount instilled into Drain (
Total)
Right Lower Abdomen Placed in / 30
IR
Output:
Drain Output (Total) 30 30
Right Lower Abdomen Placed in 30 / 30
IR
Urine, Voided 150 / 150
Other:
Number of approximated MODERATE 3
amounts of urine
Vital Signs
Temp Pulse Resp BP Pulse Ox
97.6 F 71 20 125/74 97
08/15/24 07:52 08/15/24 07:52 08/15/24 07:52 08/15/24 07:52 08/15/24 07:52
Lab Results
08/15/24 05:59
08/15/24 05:59
Calcium 9.0 mg/dl (8.4-10.2) 08/15/24 05:59
Total Bilirubin 0.6 mg/dl (0.2-1.3) 08/15/24 05:59
AST 35 U/L (14-36) 08/15/24 05:59
ALT 29 U/L (0-35) 08/15/24 05:59
Alkaline Phosphatase 75 U/L (38-126) 08/15/24 05:59
Total Protein 6.1 g/dl (6.3-8.2) L 08/15/24 05:59
Albumin 3.1 g/dl (3.5-5.0) L 08/15/24 05:59
Physical Exam
-
Gen: NAD
Abd: soft, tender overlying drain site, ND, obese, non-peritoneal, IR drain with purulent outputs, intertion site c/d/i
--- NOTE | 2024-08-15 10:23 | W.PN.HOSP.TC ---
Today's Communication/Plan
-
continue drain care/flushes. setup VN if eligible
continue IV Abx; follow cultures
regular diet
Assessment / Plan
Assessment / Plan
Assessment:
Intra-Abdominal Abscess
Recent appendicitis s/p appendectomy 06/02/24
- GS and IR consulted
- s/p IR drain placement 08/14
- follow fluid cultures/GS
- empiric Zosyn, day 2 - at dc, likely transition to Levaquin/Flagyl as previously was on Augmentin
- follow WBC and fever trends
- diet regular
- drain care per IR, daily flushes. May need VN.
Dry cough
- COVID, Flu negative
- add Mucinex for congestion
Hypotension
Benign Hypertension by history
- improved with IVF
- holding ARB
- continue metoprolol with parameters
Generalized Anxiety
Daily Alcohol Use
- Patient states that she drinks 3-4 alcoholic beverages daily on average.
- MSAS protocol and treat symptoms with BZDs as needed.
- Thiamine, MVI replacement, etc.
- Continue citalopram.
Obesity due to excess calories
- Affects all aspects of care.
- Encourage healthy diet and increased exercise with goal of weight loss.
DVT Prophylaxis: SCDs
Code Status: Full
Anticipated Discharge: Within 24 hours
Subjective/Interval History
-
Date of Service: August 15, 2024
denies any new complaints at present, just sore at RLQ near drain
Objective Data
-
Labs:
Laboratory Results
08/15/24
05:59
WBC 8.1
Hgb 9.9 L
Hct 29.6 L
Plt Count 305
Sodium 133 L
Potassium 4.3
Chloride 103
Carbon Dioxide 23
BUN 9
Creatinine 0.7
Glucose 93
Calcium 9.0
Total Bilirubin 0.6
AST 35
ALT 29
Alkaline Phosphatase 75
Vital Signs:
Vital Signs
Temp Pulse Resp BP Pulse Ox
97.6 F 71 20 125/74 97
08/15/24 07:52 08/15/24 07:52 08/15/24 07:52 08/15/24 07:52 08/15/24 07:52
I&O
08/14/24 08/15/24 08/16/24
06:59 06:59 06:59
Intake Total 1350 / 1350
Output Total 150 / 150 30 / 30
Balance -150 / -150 1320 / 1320
Physical Exam
-
General: No Apparent Distress
HEENT: Normocephalic and Atraumatic
Respiratory: Negative Wheezes or Rales
Cardiac: Regular Rhythm and S1/S2
GI: Soft and Nontender
Genito-urinary: No Costovertebral Tender
Musculoskeletal: No Edema
Neuro: AO x 3
Hematologic / Lymphatic: No Lymphadenopathy
Psych: Calm
Data Reviewed
-
Total Time Spent with Patient (in minutes): 45
Labs: Labs Reviewed by me
[2024-08-15] MEDS: THIAMINE INJECTION 200 MG IV ×2 (10:39→20:00)
[2024-08-15] MEDS: TORADOL 15 MG IV ×2 (14:47→22:25)
--- NOTE | 2024-08-15 16:24 | PTCARENOTE ---
patient educated on NEHEMIAS drain flush. Patient states she is able to do that on her own at home. Patient with minimal discomfort.
[2024-08-16] MEDS: ZOSYN 50 IV ×2 (02:53→07:37)
[2024-08-16 03:00] VITALS: BP 142/85
[2024-08-16 07:20] VITALS: BP 140/69
[2024-08-16] MEDS: CELEXA 40 MG PO (07:36)
[2024-08-16] MEDS: MUCINEX 1200 MG PO (07:36)
[2024-08-16] MEDS: FOLVITE 1 MG PO (07:36)
[2024-08-16] MEDS: TOPROL XL 25 MG PO (07:36)
[2024-08-16] MEDS: THIAMINE INJECTION 200 MG IV (07:37)
[2024-08-16 08:43] LABS: Hematocrit 32.6 % (37.0-47.0); Hemoglobin 10.7 g/dL (12.0-16.0); Mean Corp Hgb Conc. 32.8 g/dL (33.0-37.0); Mean Corpuscular Hgb 32.6 pg (27.0-31.0); Mean Corpuscular Volume 99.4 fL (81.0-99.0); Mean Platelet Volume 9.3 fL (7.4-10.4); Platelet Count 347 10^3/uL (130-400); Red Blood Cell Count 3.28 10^6/uL (4.20-5.40); Red Cell Dist. Width 13.3 % (11.5-14.5); White Blood Cell Count 8.6 10^3/uL (4.8-10.8)
[2024-08-16 09:19] LABS: ALT (SGPT) 26 U/L (0-35); AST (SGOT) 31 U/L (14-36); Albumin 3.3 g/dl (3.5-5.0); Alkaline Phosphatase 96 U/L (38-126); Blood Urea Nitrogen 8 mg/dl (7-17); Calcium 9.5 mg/dl (8.4-10.2); Carbon Dioxide 23 mmol/L (22-30); Chloride 103 mmol/L (98-107); Estimated Creatinine Clearance 99 ml/min; Glucose 94 mg/dl (70-99); Potassium 4.4 mmol/L (3.5-5.1); Sodium 134 mmol/L (135-145); Total Bilirubin 0.3 mg/dl (0.2-1.3); Total Protein 6.3 g/dl (6.3-8.2); eGFR > 60.00
--- NOTE | 2024-08-16 11:05 | W.PN.GS2 ---
Today's Communication / Plan
-
`
Assessment / Plan
-
Patient is a 54 yo F p/w deep space abscess at the site of her prior appendectomy back in May
AVSS
Leukocytosis resolved
Cultures pending
Continue with IR drainage and medical management.
-- okay for d/c from surgical standpoint
sent in script for additional 10 days of augmentin and daily NSS flushes for IR drain
will need IR drain study next week
Subjective Data
-
Date of Service: August 16, 2024
pt seen and examined
niru PO intake
drain site pain improved, only discomfort/pain was with flush yesterday
Objective Data
-
Intake and Output
08/15/24 08/16/24 08/17/24
06:59 06:59 06:59
Intake Total 1350 / 1350 900 / 900
Output Total 30 / 30
Balance 1320 / 1320 900 / 900
Intake:
Oral fluids 1170 / 1170 900 / 900
IV piggybacks 150 / 150
Amount instilled into Drain ( 30 / 30
Total)
Right Lower Abdomen Placed in 30 / 30
IR
Output:
Drain Output (Total) 30 / 30
Right Lower Abdomen Placed in 30 / 30
IR
Other:
Number of approximated MODERATE 3 2
amounts of urine
Vital Signs
Temp Pulse Resp BP Pulse Ox
97.8 F 64 17 140/69 97
08/16/24 07:20 08/16/24 07:36 08/16/24 07:20 08/16/24 07:36 08/16/24 07:20
Lab Results
08/16/24 08:00
08/16/24 08:00
Calcium 9.5 mg/dl (8.4-10.2) 08/16/24 08:00
Total Bilirubin 0.3 mg/dl (0.2-1.3) 08/16/24 08:00
AST 31 U/L (14-36) 08/16/24 08:00
ALT 26 U/L (0-35) 08/16/24 08:00
Alkaline Phosphatase 96 U/L (38-126) 08/16/24 08:00
Total Protein 6.3 g/dl (6.3-8.2) 08/16/24 08:00
Albumin 3.3 g/dl (3.5-5.0) L 08/16/24 08:00
Physical Exam
-
NAD AAOx3
ABD: soft, ND, mild TTP RLQ at IR drain site
IR drain to bulb suction, some light purulent fluid
[2024-08-16 11:10] VITALS: BP 137/92
[2024-08-16 11:11] VITALS: BP 133/81; BP 137/92; BP 150/95; PULSE 71; PULSE 73; PULSE 78
--- NOTE | 2024-08-16 11:38 | CM ---
Met with patient to obtain information for assessment. Patient stated that she lives with her spouse in a single home with one story and a basement. There is one step to enter. She described herself as independent with her ADLs, personal care,
dressing and bathing. 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 She drives and can get to her appointments and do her own laundry.
Patient denied any DME in her home.
She has never been to a SNF.
Patient has a prescription plan and uses, [facility] in [place] for all of her medications.
Her PCP is, Dinora Alarcon.
Spoke with patient about etoh referral. She admitted that her spouse feels she should drink less, however she does not feel that she has any addiction issues. Patient was advised that if she changes her mind there are a lot of resources she can have
access to. Patient expressed appreciation.
Plan: Case management will continue to follow and assist with discharge planning. Home when stable.
--- NOTE | 2024-08-16 13:11 | W.PN.HOSP.TC ---
Today's Communication/Plan
-
dc home with OP drain study next week
Assessment / Plan
Assessment / Plan
Assessment:
Intra-Abdominal Abscess
Recent appendicitis s/p appendectomy 06/02/24
- GS and IR consulted
- s/p IR drain placement 08/14; daily flushes and IR drain study outpatient next week
- d/w GS and plan for DC on Augmentin x 10 additional days
- diet regular
Dry cough
- COVID, Flu negative
- add Mucinex for congestion
Hypotension
Benign Hypertension by history
- improved with IVF
- resume ARB at dc
- continue metoprolol with parameters
Generalized Anxiety
Daily Alcohol Use
- Patient states that she drinks 3-4 alcoholic beverages daily on average.
- MSAS protocol and treat symptoms with BZDs as needed.
- Thiamine, MVI replacement, etc.
- Continue citalopram.
Obesity due to excess calories
- Affects all aspects of care.
- Encourage healthy diet and increased exercise with goal of weight loss.
DVT Prophylaxis: SCDs
Code Status: Full
More than 30 minutes spent in discharge including
Final examination of the patient
Summarizing hospital stay
Instructions for continuing care to all relevant caregivers
Preparation of discharge records, prescriptions, and referral forms
Total time spent (in minutes): 41
Anticipated Discharge: Today
Subjective/Interval History
-
Date of Service: August 16, 2024
tolerating diet
pain improving
some gas discomfort earlier is better
for dc today
Objective Data
-
Labs:
Laboratory Results
08/16/24
08:00
WBC 8.6
Hgb 10.7 L
Hct 32.6 L
Plt Count 347
Sodium 134 L
Potassium 4.4
Chloride 103
Carbon Dioxide 23
BUN 8
Creatinine 0.8
Glucose 94
Calcium 9.5
Total Bilirubin 0.3
AST 31
ALT 26
Alkaline Phosphatase 96
Vital Signs:
Vital Signs
Temp Pulse Resp BP Pulse Ox
97.8 F 73 18 137/92 97
08/16/24 11:10 08/16/24 11:10 08/16/24 11:10 08/16/24 11:10 08/16/24 11:10
I&O
08/15/24 08/16/24 08/17/24
06:59 06:59 06:59
Intake Total 1350 / 1350 900 / 900
Output Total 30 / 30
Balance 1320 / 1320 900 / 900
Physical Exam
-
General: No Apparent Distress
HEENT: Normocephalic and Atraumatic
Respiratory: Negative Wheezes or Rales
Cardiac: Regular Rhythm and S1/S2
GI: Soft and Other (RLQ Drain)
Genito-urinary: No Costovertebral Tender
Neuro: AO x 3
Hematologic / Lymphatic: No Lymphadenopathy
Psych: Calm
Data Reviewed
-
Total Time Spent with Patient (in minutes): 41
Labs: Labs Reviewed by me
--- NOTE | 2024-08-16 13:14 | W.DS.TRANS ---
DC Summary - Clinical Quality Analyst
-
Discharge Instructions:
Discharge Diagnosis/Procedures IR drain placed for RLQ abdominal abscess
Diet As tolerated,Regular
Activity No strenuous activity
Additional Activity routine daily activities are okay as tolerated
Bathing Restrictions OK to Shower
Instructions: How to care for a closed suction drain
Stand-Alone Forms:
Changes to Home Medications: No
Discharge Medications:
DC Medications w/original date entered in [facility]
alprazolam 0.5 mg tablet 0.5 mg PO DAILYPRN PRN anxiety 06/01/24
citalopram 40 mg tablet 40 mg PO DAILY depression/anxiety 06/01/24
metoprolol succinate 25 mg tablet,extended release 24 hr 25 mg PO DAILY Blood Pressure 06/01/24
valsartan 320 mg tablet 320 mg PO DAILY Blood Pressure 06/01/24
amoxicillin 875 mg-potassium clavulanate 125 mg tablet 1 tab PO Q12 antibiotic #10 tabs 08/16/24
sodium chloride 0.9 % (flush) 10 ml intra-catheter DAILY 20 days #10 mL 08/16/24
Home Medication Changes
Pending Results: No
Total time spent discharging patient (in min): 41
== END 2024-08-16 14:02 | disposition home or self-care (01) | DRG 862 ==
LOC: 3 WEST ACU 02:41
PROVIDERS: Clinical Nurse Specialist Family Health; Radiology Vascular & Interventional Radiology; Student in an Organized Health Care Education/Training Program; ADMITTING PHYSICIAN Hospitalist; ATTENDING PHYSICIAN Internal Medicine; EMERGENCY PHYSICIAN Emergency Medicine; FAMILY PHYSICIAN Physician Assistant Medical; OTHER PHYSICIAN Surgery
PROC: 0W9J30Z Drainage of Pelvic Cavity with Drainage Device, Percutaneous Approach (ICD-10-PCS; 2024-08-14)
DX: T81.43XA Infection following a procedure, organ and space surgical site, initial encounter (principal); K65.1 Peritoneal abscess; F41.1 Generalized anxiety disorder; F17.200 Nicotine dependence, unspecified, uncomplicated; E66.09 Other obesity due to excess calories; I10 Essential (primary) hypertension; D50.9 Iron deficiency anemia, unspecified; I95.9 Hypotension, unspecified; F32.A Depression, unspecified; R05.9 Cough, unspecified; F10.90 Alcohol use, unspecified, uncomplicated; Y84.8 Other medical procedures as the cause of abnormal reaction of the patient, or of later complication, without mention of misadventure at the time of the procedure; Y92.9 Unspecified place or not applicable; Z68.36 Body mass index [BMI] 36.0-36.9, adult; Z11.52 Encounter for screening for COVID-19; Z87.19 Personal history of other diseases of the digestive system
CPT/HCPCS: 49406; 74177; 80048; 80053; 80306; 80307; 81003; 81015; 83605; 83690; 84443; 85025; 85027; 85610; 85730; 87015; 87070; 87086; 87205; 87502; 87811; 93005; 96361; 96365; 96375; 99152; 99285; Q9967

== ENCOUNTER → 2024-08-21 12:41 | Outpatient (REF) | payer OTHER, SELFPAY ==
[2024-08-21 12:00] VITALS: BP 149/98; BP_SYST 66
== END ==
LOC: RADI 12:41
PROVIDERS: ATTENDING PHYSICIAN Surgery; FAMILY PHYSICIAN Physician Assistant Medical
DX: Z46.82 Encounter for fitting and adjustment of non-vascular catheter (principal); K65.1 Peritoneal abscess
CPT/HCPCS: 49424; 76080

== ENCOUNTER → 2024-10-26 14:03 | Outpatient (REF) | payer OTHER, SELFPAY | LOC: RAD 14:03 | PROVIDERS: ATTENDING PHYSICIAN Surgery; FAMILY PHYSICIAN Physician Assistant Medical | DX: R10.31 Right lower quadrant pain (principal) | CPT/HCPCS: 74177; Q9967 ==

== ENCOUNTER → 2024-10-27 10:26 | Outpatient (REF) | payer OTHER, SELFPAY ==
[2024-10-27 10:45] VITALS: BP_SYST 77
[2024-10-27 12:29] VITALS: BP 128/57
== END ==
LOC: RADI 10:26
PROVIDERS: ATTENDING PHYSICIAN Surgery; FAMILY PHYSICIAN Physician Assistant Medical
DX: K65.1 Peritoneal abscess (principal)
CPT/HCPCS: 49406; 87070; 87205; 99152

== ENCOUNTER → 2024-11-28 11:03 | Outpatient (REF) | payer OTHER, SELFPAY | LOC: WDC 11:03 | PROVIDERS: ATTENDING PHYSICIAN Physician Assistant Medical | DX: Z12.31 Encounter for screening mammogram for malignant neoplasm of breast (principal) | CPT/HCPCS: 77063; 77067 ==